=== PATIENT | female | born 1965 | race Caucasian/White ===

== ENCOUNTER 2017-04-23 21:21 | Emergency (ER) | payer SELFPAY ==
[2017-04-23] MEDS ORDERED: LISINOPRIL 10 MG TABLET PO ONE (22:39)
[2017-04-23] MEDS ORDERED: HYDROCHLOROTHIAZIDE 12.5 MG CAPSULE PO ONE (22:39)
--- NOTE | 2017-04-23 22:48 | ER Document Report ---
ED General - General Chief Complaint: Swollen area on back Stated Complaint: POSSIBLE ABSCESS ON BACK Time Seen by Provider: 04/23/17 22:33 Notes: Patient is a 51-year-old female who presents with complaint of a sore area on her back. She says over 20 years ago she had a epidural. She said since she says a small knot over her back. She says the last 2 weeks but not has grown in size and become painful. The knot is actually over her paraspinal musculature. She still thinks this is where the epidural was performed; however , this was over 20 years ago. She has had no fevers. No vomiting. Her only other complaints that her blood pressure was high upon arrival. She has no headache or chest pain or shortness of breath. She forgot to take her blood pressure medications today. She says that she is also out of refills for her blood pressure medications and is unsure if she even has any at home. She takes lisinopril and hydrochlorothiazide. TRAVEL OUTSIDE OF THE [place] IN LAST 30 DAYS: No - Related Data Allergies/Adverse Reactions: No Known Allergies Allergy (Unverified 04/23/17 21:48) Past Medical History - Social History Smoking Status: Never Smoker Frequency of alcohol use: None Drug Abuse: None Family History: Reviewed & Not Pertinent - Past Medical History Cardiac Medical History: Reports: Hx Hypertension Renal/ Medical History: Denies: Hx Peritoneal Dialysis Past Surgical History: Reports: Hx Abdominal Surgery - Hernia repair - Immunizations Immunizations up to date: Yes Hx Diphtheria, Pertussis, Tetanus Vaccination: Yes Review of Systems - Review of Systems Notes: My Normal Review Basic REVIEW OF SYSTEMS: CONSTITUTIONAL : Denies fever, chills, or sweats. Denies recent illness. EENT: Denies eye, ear, throat, or mouth pain or symptoms. Denies nasal or sinus congestion. RESPIRATORY: Denies cough, cold, or chest congestion. Denies shortness of breath, difficulty breathing, or wheezing. GASTROINTESTINAL: Denies abdominal pain. Denies nausea, vomiting, or diarrhea. Denies constipation. MUSCULOSKELETAL: Painful knot over back. SKIN: Denies rash or skin lesions. NEUROLOGICAL: Denies altered mental status or loss of consciousness. Denies headache. Denies weakness or paralysis or loss of use of either side. Denies problems with gait or speech. Denies sensory or motor loss. ALL OTHER SYSTEMS REVIEWED AND NEGATIVE. Physical Exam - Vital signs Vitals: Temp Pulse Resp BP Pulse Ox 98.3 F 75 20 183/105 H 98 04/23/17 21:44 04/23/17 21:44 04/23/17 21:44 04/23/17 21:44 04/23/17 21:44 - Notes Notes: General Appearance: Well nourished, alert, cooperative, no acute distress, mild obvious discomfort. Vitals: reviewed, See vital signs table. Head: no swelling or tenderness to the head Eyes: PERRL, EOMI, Conjuctiva clear Mouth: No decreasd moisture Back: Patient has an approximately 2 cm firm not that appears to be in the subcutaneous tissue that is over the left lumbar paraspinal musculature. Did not is not over the spine itself. There is no fluctuance. It is irregular shaped. Extremities: strength 5/5 in all extremities Skin: warm, dry, appropriate color, no rash Neuro: speech clear, oriented x 3, normal affect, responds appropriately to questions. Normal gait. Course - Re-evaluation Re-evalutation: 04/23/17 23:22 The knot is somewhat irregular shaped. It is firm. I did try to needle aspirate to see if there is any associated purulence with it. There is none. I do not consider this to be a simple lipoma being that it is irregular shaped firm and not mobile beneath the skin. Informed patient that she most likely to have a biopsy of the area. I will refer her to surgery clinic. I told her that I do not necessarily think it is cancer but we cannot rule out potential of cancer without the biopsy. She is understanding of this and agrees to follow -up with surgery clinic. I will place her back on her blood pressure medication. I encouraged her to take her medications as prescribed. Encouraged to return to ER if she has any further concerns. Patient agrees with plan and will be discharged home. Dictation of this chart was performed using voice recognition software; therefore, there may be some unintended grammatical errors. - Vital Signs Vital signs: Temp Pulse Resp BP Pulse Ox 98.3 F 75 20 183/105 H 98 04/23/17 21:44 04/23/17 21:44 04/23/17 21:44 04/23/17 21:44 04/23/17 21:44 Discharge - Discharge Clinical Impression: Soft tissue mass Hypertension Qualifiers: Hypertension type: essential hypertension Qualified Code(s): I10 - Essential ( primary) hypertension Condition: Good Disposition: HOME, SELF-CARE Additional Instructions: Please follow up with the surgery clinic (Dr. Barker) to have the bump on your back biopsied. This is important as we do not know exactly what it is so a biopsy will give us a diagnosis. Please take the high blood pressure as prescribed. please return to the ER immediately if you have severe headaches, vomiting, fevers, chest pain, or feel unwell. Prescriptions: Hydrochlorothiazide 12.5 mg PO DAILY #30 capsule Lisinopril 20 mg PO DAILY #30 tablet Naproxen [Naprosyn 250 mg Tablet] 250 mg PO BID #20 tablet Referrals: PING BARKER MD [ACTIVE STAFF] - Follow up in 3-5 days
[2017-04-23] MEDS ORDERED: NAPROXEN 250 MG TABLET PO ONE (22:52)
[2017-04-24] VITALS: BP 195/103
== END 2017-04-23 23:58 | disposition home or self-care (01) ==
LOC: ER 21:21
DX: R22.2 Localized swelling, mass and lump, trunk (principal); Z98.890 Other specified postprocedural states; I10 Essential (primary) hypertension; T46.4X6A Underdosing of angiotensin-converting-enzyme inhibitors, initial encounter; T50.2X6A Underdosing of carbonic-anhydrase inhibitors, benzothiadiazides and other diuretics, initial encounter; Z91.138 Patient's unintentional underdosing of medication regimen for other reason; Z91.14 Patient's other noncompliance with medication regimen; Z79.899 Other long term (current) drug therapy
CPT/HCPCS: 99282

== ENCOUNTER 2017-12-17 21:04 | Emergency (ER) | payer SELFPAY ==
[2017-12-17] MEDS ORDERED: ASPIRIN 81 MG TABLET, CHEWABLE PO ONE (21:23)
--- NOTE | 2017-12-17 22:06 | RADIOLOGY REPORT (SQ) ---
EXAM DESCRIPTION: CHEST SINGLE VIEW COMPLETED DATE/TIME: 12/17/2017 9:52 pm REASON FOR STUDY: chest pain COMPARISON: None. EXAM PARAMETERS: NUMBER OF VIEWS: One view. TECHNIQUE: Single frontal radiographic view of the chest acquired. RADIATION DOSE: NA LIMITATIONS: None. FINDINGS: LUNGS AND PLEURA: No opacities, masses or pneumothorax. No pleural effusion. MEDIASTINUM AND HILAR STRUCTURES: No masses. Contour normal. HEART AND VASCULAR STRUCTURES: Heart normal in size. Normal vasculature. BONES: No acute findings. HARDWARE: None in the chest. OTHER: No other significant finding. IMPRESSION: NO ACUTE RADIOGRAPHIC FINDING IN THE CHEST. TECHNICAL DOCUMENTATION: JOB ID: [id number] [employer]- All Rights Reserved Reading location - IP/workstation name: [email or web address]
[2017-12-17 22:12] VITALS: BP 170/109
[2017-12-17] MEDS ORDERED: POLYMYXIN B SULFATE/TMP OPH SOLN (10 ML/ER DISP) OS PRN (22:25)
[2017-12-17] MEDS ORDERED: LOSARTAN POTASSIUM 25 MG TABLET PO ONE (22:25)
[2017-12-17] MEDS ORDERED: HYDROCHLOROTHIAZIDE 12.5 MG CAPSULE PO ONE (22:25)
--- NOTE | 2017-12-17 23:10 | ER Document Report ---
ED General - General Chief Complaint: High Blood Pressure Stated Complaint: CHEST PAIN,HIGH BLOOD PRESSURE Time Seen by Provider: 12/17/17 22:15 TRAVEL OUTSIDE OF THE [place] IN LAST 30 DAYS: No - HPI Patient complains to provider of: Chest pain elevated blood pressure cough left eye complaint Notes: Patient coming in for cough ongoing for 5 days chest pain ongoing for 2 days elevated blood pressure and woke up this morning with left eye redness and a little bit of clear drainage. Patient states she is on antihypertensive medications however is been currently out for 1 week. Patient states pain left chest sharp shooting ongoing for the last 2 days. Denies any fevers chills nausea vomiting diarrhea. Denies any exacerbation of her chest pain except for with coughing. Denies any recent travel no hormone replacement. Patient has history of PE. Patient states originally was coming to the ER for her left eye and then noticed that her blood pressure was elevated. Patient does state that Family member has been sick for cough cold prior to her having a cough. Patient states she also has been taking pujb-uei-gjiitdl cough medication - Related Data Allergies/Adverse Reactions: No Known Allergies Allergy (Unverified 04/23/17 21:48) Past Medical History - Social History Smoking Status: Unknown if Ever Smoked Family History: Reviewed & Not Pertinent - Past Medical History Cardiac Medical History: Reports: Hx Hypertension Renal/ Medical History: Denies: Hx Peritoneal Dialysis Past Surgical History: Reports: Hx Abdominal Surgery - Hernia repair - Immunizations Immunizations up to date: Yes Hx Diphtheria, Pertussis, Tetanus Vaccination: Yes Review of Systems - Review of Systems Constitutional: See HPI, Other - Chest pain elevated blood pressure left eye pain EENT: No symptoms reported Cardiovascular: No symptoms reported Respiratory: No symptoms reported Gastrointestinal: No symptoms reported Genitourinary: No symptoms reported Female Genitourinary: No symptoms reported Musculoskeletal: No symptoms reported Skin: No symptoms reported Hematologic/Lymphatic: No symptoms reported Neurological/Psychological: No symptoms reported Physical Exam - Vital signs Vitals: Temp Pulse Resp BP Pulse Ox 99.6 F 109 H 20 193/120 H 95 12/17/17 21:40 12/17/17 21:40 12/17/17 21:40 12/17/17 21:40 12/17/17 21:40 Interpretation: Hypertensive - General General appearance: Appears well, Alert - HEENT Head: Normocephalic, Atraumatic Eyes: Normal Conjunctiva: Injected - Very mild injection of the left conjunctival Extraocular movements intact: Yes Eyelashes: Normal Pupils: PERRL - Respiratory Respiratory status: No respiratory distress Chest status: Tender - Tenderness palpation left-sided of the patient's chest reproduces the patient's pain Breath sounds: Normal Chest palpation: Normal - Cardiovascular Rhythm: Regular Heart sounds: Normal auscultation Murmur: No - Abdominal Inspection: Normal Distension: No distension Bowel sounds: Normal Tenderness: Nontender Organomegaly: No organomegaly - Back Back: Normal, Nontender - Extremities General upper extremity: Normal inspection, Nontender, Normal color, Normal ROM , Normal temperature General lower extremity: Normal inspection, Nontender, Normal color, Normal ROM , Normal temperature, Normal weight bearing. No: Meet's sign - Neurological Neuro grossly intact: Yes Cognition: Normal Orientation: AAOx4 Sheree Coma Scale Eye Opening: Spontaneous Sheree Coma Scale Verbal: Oriented Sheree Coma Scale Motor: Obeys Commands Sheree Coma Scale Total: 15 Speech: Normal Motor strength normal: LUE, RUE, LLE, RLE Sensory: Normal - Psychological Associated symptoms: Normal affect, Normal mood - Skin Skin Temperature: Warm Skin Moisture: Dry Skin Color: Normal Course - Re-evaluation Re-evalutation: 12/17/17 23:16 Patient coming in for left-sided chest pain ongoing for 2 days elevated blood pressure without taking her blood pressure medication for approximately 1 week also take an ched-lqq-lwbkxyw cough medication for cough ongoing for the last 5 days no fevers or chills also concerned about redness of the left eye with minimal drainage. Patient was seen 16 hallway and evaluated first patient on my shift. Patient would be no obvious distress. Examination only revealed mild erythema of the left eye consistent with a very mild conjunctivitis. EKG was reviewed showing no changes from previous. Patient states she is currently on hydrochlorothiazide unknown dose and losartan 25 mg. Explained to patient that we will give her home medications To the patient also that we wanted to obtain lab work to further evaluate her chest pain patient is declining laboratory studies at this time. Patient asked multiple times along with take me to order her her medications I explained to patient that as soon as I sit down at a computer we will order these medications and the nurse will administer them. I did walk into room #16 as I had the patient's chart to see next however she was in the CT scanner and then sat down on my desk order for medications later I was informed by the nursing staff that the patient had removed herself from [address] [place], [place] [id number] and was now in the [facility] patient did return back into the ER agitated apparently calling the nursing staff racist having to be escorted out by security. Patient removed herself from the ER refusing care. At this time do not see any critical etiology on EKG or on her physical examination. At the good patient discharge instructions with the provide the patient a bottle Polytrim for her very minimal left conjunctivitis. We also did provide prescriptions as the patient does have hypertension has been out of her medications for 1 week for a week supply worth of losartan and hydrochlorothiazide 12.5 mg low dose is that we have prescribed this in the past. Is currently standing in the [facility] patient has refused all lab draws of the ER. 12/18/17 02:56 - Vital Signs Vital signs: Temp Pulse Resp BP Pulse Ox 98 F 104 H 22 H 170/109 H 98 12/17/17 22:10 12/17/17 22:10 12/17/17 22:10 12/17/17 22:10 12/17/17 22:10 Discharge - Discharge Clinical Impression: Cough, Chest pain of uncertain etiology Conjunctivitis Qualifiers: Conjunctivitis type: unspecified Laterality: left Qualified Code(s): H10.9 - Unspecified conjunctivitis Hypertension Qualifiers: Hypertension type: essential hypertension Qualified Code(s): I10 - Essential ( primary) hypertension Disposition: HOME, SELF-CARE Instructions: Chest Wall Pain ([facility]), Conjunctivitis ([facility]), Chest Pain of Unclear Cause ([facility]), High Blood Pressure ([facility]) Additional Instructions: Your chest x-ray today does not show any signs of infection or pneumonia. Her lung sounds on examination are clear. More likely your cough is due to underlying viral illness. With viral illnesses he can expect a cough for approximately 1-2 weeks. Recommend following up with your primary care physician for further evaluation. Her left eye is mildly erythematous consistent with a conjunctivitis which may be viral allergic or bacterial in origin. Please use the antibiotic drops to be gave you here in the ER 1-2 drops in her left eye 4 times a day for the next 7 days. Your EKG today does not show any acute abnormality. No signs of cardiac ischemia. You have refused any lab draws this time to further evaluate your chest pain. You stated that you have been out of your blood pressure medications for the last week did not take any blood pressure medication today. You also state of you have been taking ygjg-nbg-fwkgrbz cough cold medications. Please be aware that without taking a blood pressure medications and certain cough cold medications will cause your pressure to elevate blood pressure to elevate. He stated you are currently on losartan 25 mg and hydrochlorothiazide unknown dose. We gave you losartan 25 mg and hydrochlorothiazide low dose of 12.5 for your elevated blood pressure. I will give you a prescription for losartan 25 mg to take daily and hydrochlorothiazide 12.5 mg to take daily for the next 7 days. Please make sure you follow-up with your primary care physician for refills. Please let your local pharmacy as noted you are on blood pressure medications that can guide you in the appropriate wida-auy-qtmqnyk medications to take for your cough and cold-like symptoms. Return to ER anytime for further evaluation. Prescriptions: Hydrochlorothiazide 12.5 mg PO DAILY #7 capsule Losartan Potassium 25 mg PO DAILY #7 tablet Forms: Return to Work
--- NOTE | 2017-12-18 08:01 | EKG REPORT ---
SEVERITY:- ABNORMAL ECG - SINUS RHYTHM PROBABLE LVH WITH SECONDARY REPOL ABNRM : Confirmed by: Rudolph Yeh MD 18-Dec-2017 08:01:04
== END 2017-12-17 23:27 | disposition home or self-care (01) ==
LOC: ER 21:04
DX: I10 Essential (primary) hypertension (principal); T46.5X6A Underdosing of other antihypertensive drugs, initial encounter; T50.2X6A Underdosing of carbonic-anhydrase inhibitors, benzothiadiazides and other diuretics, initial encounter; Z91.128 Patient's intentional underdosing of medication regimen for other reason; Z91.14 Patient's other noncompliance with medication regimen; H10.9 Unspecified conjunctivitis; R07.9 Chest pain, unspecified; R05 Cough; H57.12 Ocular pain, left eye; Z86.711 Personal history of pulmonary embolism; Z53.29 Procedure and treatment not carried out because of patient's decision for other reasons
CPT/HCPCS: 93005; 99283; 71045; 93010; J3490

== ENCOUNTER 2018-08-03 12:49 | Emergency (ER) | payer SELFPAY ==
[2018-08-03] MEDS ORDERED: CLONIDINE HCL 0.2 MG TABLET PO ONE (13:06)
--- NOTE | 2018-08-03 13:08 | ER Document Report ---
ED Medical Screen (RME) - General Chief Complaint: Abdominal Pain Stated Complaint: ABDOMEN PAIN Time Seen by Provider: 08/03/18 13:05 Mode of Arrival: Ambulatory Information source: Patient - pt with severe pelvic pain and discharge with some hematuria for the past several hours. Also, BP elevated. Didd not take meds today. TRAVEL OUTSIDE OF THE [place] IN LAST 30 DAYS: No - Related Data Allergies/Adverse Reactions: No Known Allergies Allergy (Verified 08/03/18 12:51) Past Medical History - Past Medical History Cardiac Medical History: Reports: Hx Hypertension Renal/ Medical History: Denies: Hx Peritoneal Dialysis Past Surgical History: Reports: Hx Abdominal Surgery - Hernia repair - Immunizations Immunizations up to date: Yes Hx Diphtheria, Pertussis, Tetanus Vaccination: Yes Physical Exam - Vital signs Vitals: Temp Pulse Resp BP Pulse Ox 97.9 F 78 16 222/102 H 97 08/03/18 12:53 08/03/18 12:53 08/03/18 12:53 08/03/18 12:53 08/03/18 12:53 Course - Vital Signs Vital signs: Temp Pulse Resp BP Pulse Ox 97.9 F 78 16 222/102 H 97 08/03/18 12:53 08/03/18 12:53 08/03/18 12:53 08/03/18 12:53 08/03/18 12:53
[2018-08-03 13:45] LABS: ABSOLUTE EOSINOPHILS # (AUTO) 0.1 10^3/uL (0.0-0.6); ABSOLUTE LYMPHOCYTES (AUTO) 2.7 10^3/uL (0.5-4.7); ABSOLUTE MONOCYTES (AUTO) 0.6 10^3/uL (0.1-1.4); BASOPHILS % (AUTO) 0.2 % (0-2); EOSINOPHILS % (AUTO) 1.5 % (0-6); HEMATOCRIT 37.8 % (36.0-47.0); HEMOGLOBIN 12.2 g/dL (12.0-15.5); LYMPHOCYTES % (AUTO) 42.3 % (13-45); MEAN CORPUSCULAR HEMOGLOBIN 25.5 pg (27.0-33.4); MEAN CORPUSCULAR HGB CONC 32.2 g/dL (32.0-36.0); MEAN CORPUSCULAR VOLUME 79 fl (80-97); MONOCYTES % (AUTO) 9.2 % (3-13); PLATELET COUNT 298 10^3/uL (150-450); RED BLOOD COUNT 4.78 10^6/uL (3.72-5.28); SEGMENTED NEUTROPHILS % (AUTO) 46.8 % (42-78); TOTAL CELLS COUNTED % (AUTO) 100 %; WHITE BLOOD COUNT 6.4 10^3/uL (4.0-10.5)
[2018-08-03 14:01] LABS: ALANINE AMINOTRANSFERASE 22 U/L (9-52); ALBUMIN 4.7 g/dL (3.5-5.0); ALKALINE PHOSPHATASE 98 U/L (38-126); ANION GAP 15 (5-19); ASPARTATE AMINO TRANSFERASE 23 U/L (14-36); BILIRUBIN,DIRECT 0.3 mg/dL (0.0-0.4); BILIRUBIN,TOTAL 0.5 mg/dL (0.2-1.3); BLOOD UREA NITROGEN 15 mg/dL (7-20); CALCIUM 9.6 mg/dL (8.4-10.2); CARBON DIOXIDE 23 mmol/L (22-30); CHLORIDE 106 mmol/L (98-107); GLUCOSE 88 mg/dL (75-110); POTASSIUM 3.8 mmol/L (3.6-5.0); SODIUM 143.8 mmol/L (137-145); TOTAL PROTEIN 8.6 g/dL (6.3-8.2)
[2018-08-03 14:41] LABS: APPEARANCE,URINE CLOUDY; BILIRUBIN,URINE NEGATIVE (NEGATIVE); COLOR,URINE ORANGE; GLUCOSE, URINE NEGATIVE (NEGATIVE); KETONES,URINE NEGATIVE (NEGATIVE); LEUKOCYTE ESTERASE,URINE NEGATIVE (NEGATIVE); NITRITE,URINE NEGATIVE (NEGATIVE); PROTEIN,URINE 100 mg/dL (NEGATIVE); URINE SPECIFIC GRAVITY 1.023
[2018-08-03 15:45] LABS: BACTERIA (WET MOUNT) 3+ BACTERIA SEEN; RBCS (WET MOUNT) 4+ RBCS SEEN; T.VAGINALIS (WET MOUNT) NO TRICHOMONAS SEEN; WBCS (WET MOUNT) FEW WBCS SEEN; YEAST (WET MOUNT) NO YEAST SEEN
[2018-08-03 17:17] LABS: CHLAM PCR NOT DETECTED (NOT DETECT); GON PCR NOT DETECTED (NOT DETECT)
--- NOTE | 2018-08-03 18:03 | RADIOLOGY REPORT (SQ) ---
EXAM DESCRIPTION: U/S NON-OB PELVIS TV W/O DOP COMPLETED DATE/TIME: 08/03/2018 5:43 pm REASON FOR STUDY: pelvic pain COMPARISON: None. TECHNIQUE: Dynamic and static grayscale images acquired of the pelvis via transvaginal approach and recorded on PACS. Additional selected color Doppler and spectral images recorded. LIMITATIONS: None. FINDINGS: UTERUS: Contour normal. Within the anterior myometrium is a 2.0 x 1.6 cm hypoechoic intra mural fibroid with no internal color flow. ENDOMETRIAL STRIPE: No focal or generalized thickening. No masses. CERVIX: No nabothian cysts. RIGHT OVARY AND DOPPLER: Ovary not visualized. LEFT OVARY AND DOPPLER: Ovary not visualized. FREE FLUID: Trace pelvic free fluid OTHER: No other significant finding. MEASUREMENTS: UTERUS: 10.9 x 6.7 x 5.7 cm ENDOMETRIAL STRIPE: 11 mm RIGHT OVARY: Not visualized LEFT OVARY: Not visualized IMPRESSION: 1. Nonvisualization of ovaries. 2. Fibroid uterus. 3. Trace pelvic free fluid. TECHNICAL DOCUMENTATION: JOB ID: [id number] [employer]- All Rights Reserved Rev-02/07 Reading location - IP/workstation name: [email or web address]
--- NOTE | 2018-08-03 18:35 | ER Document Report ---
ED GI/ - General Chief Complaint: Abdominal Pain Stated Complaint: ABDOMEN PAIN Time Seen by Provider: 08/03/18 13:05 Mode of Arrival: Ambulatory Information source: Patient Notes: Patient is a 53-year-old female comes emergency room complaining of dysfunctional uterine bleeding. Patient tells me that yesterday she had a little bit of a white discharge vaginally but states she does not know what that is from because she is not been intimate in over a year. She states she got up and took her son to the bus this morning to go back to [place] she came home and lay down when she woke up around 9 AM she had to go to the bathroom when she did she peed bright red blood. She drinks more water and thought maybe she would flush it out and she did it one more time and so she decided to come into ER and get it checked out. She denies passing any clots at present. Patient states that she stopped her periods in 2012. Her REGULATION SUPERVISOR at the time who she has not seen in 3 years told her she was perimenopausal 3 years ago. Patient denies any other medical problems with the exception of hypertension which she is taking medication for and did not take today. The only surgery she has had his hernia surgery when she was a child. TRAVEL OUTSIDE OF THE [place] IN LAST 30 DAYS: No - HPI Patient complains to provider of: Vaginal bleeding Onset: This morning Timing/Duration: Sudden, Worse Quality of pain: Achy, Throbbing Severity at maximum: Moderate Severity in ED: Moderate Pain Level: 3 Location: Pelvis Vaginal bleeding (Compared to normal period): Bright red. denies: Passing clots , Passing tissue Menstrual period history: Abnormal, Post-menopausal LMP: 2013 Sexual history: Inactive Associated symptoms: Vaginal discharge Exacerbated by: Denies Relieved by: Denies Similar symptoms previously: No Recently seen / treated by doctor: No - Related Data Allergies/Adverse Reactions: No Known Allergies Allergy (Verified 08/03/18 12:51) Past Medical History - General Information source: Patient - Social History Smoking Status: Never Smoker Cigarette use (# per day): No Chew tobacco use (# tins/day): No Smoking Education Provided: No Frequency of alcohol use: None Drug Abuse: None Family History: Reviewed & Not Pertinent Patient has suicidal ideation: No Patient has homicidal ideation: No - Past Medical History Cardiac Medical History: Reports: Hx Hypertension Renal/ Medical History: Denies: Hx Peritoneal Dialysis Past Surgical History: Reports: Hx Abdominal Surgery - Hernia repair - Immunizations Immunizations up to date: Yes Hx Diphtheria, Pertussis, Tetanus Vaccination: Yes Review of Systems - Review of Systems Constitutional: No symptoms reported EENT: No symptoms reported Cardiovascular: No symptoms reported Respiratory: No symptoms reported Gastrointestinal: No symptoms reported Genitourinary: Hematuria Female Genitourinary: See HPI, Vaginal bleeding Musculoskeletal: No symptoms reported Skin: No symptoms reported Hematologic/Lymphatic: No symptoms reported Neurological/Psychological: No symptoms reported -: Yes All other systems reviewed and negative Physical Exam - Vital signs Vitals: Temp Pulse Resp BP Pulse Ox 97.9 F 78 16 222/102 H 97 08/03/18 12:53 08/03/18 12:53 08/03/18 12:53 08/03/18 12:53 08/03/18 12:53 Interpretation: Hypertensive - Notes Notes: PHYSICAL EXAMINATION: GENERAL: Well-appearing, well-nourished and in no acute distress. HEAD: Atraumatic, normocephalic. EYES: Pupils equal round and reactive to light, extraocular movements intact, conjunctiva are normal. ENT: Nares patent, oropharynx clear without exudates. Moist mucous membranes. NECK: Normal range of motion, supple without lymphadenopathy LUNGS: Breath sounds clear to auscultation bilaterally and equal. No wheezes rales or rhonchi. HEART: Regular rate and rhythm without murmurs ABDOMEN: Examination of patient's abdomen shows she has bowel sounds in all 4 quads. She is nontender in the quadrants of the abdominal area. She does show some moderate tenderness suprapubically to palpation. I cannot palpate the bladder at this time. Female : Pelvic exam shows that external genitalia appear normal. There is some drying blood on the introitus. And the vaginal canal has darkish blood. Further examination shows her to have a normal-appearing cervix the office is multiparity it is closed there is a minimal to moderate amount of darkish red blood coming from the office with a clear kind of discharge mucoid discharge with it. Again it is closed. There is large amount of dark red blood in the vaginal vault although there are no blood clots that I can see at this time. Bimanual exam does not show any abnormalities or tenderness. Musculoskeletal: Normal range of motion, no pitting or edema. No cyanosis. NEUROLOGICAL: Cranial nerves grossly intact. Normal speech, normal gait. Normal sensory, motor exams PSYCH: Normal mood, normal affect. SKIN: Warm, Dry, normal turgor, no rashes or lesions noted. Course - Re-evaluation Re-evalutation: 08/03/18 18:35 Currently patient's labs all normal with exception of she comes back 182 WBCs believe we will treat that as a urinary tract infection even though she does not have any nitrates or she does not have any leukocytes. We will treat for 5 days on that was to Macrobid. At this point of the ultrasound did not be everything abnormal although did not moss picker the ovaries. Given patient's discomfort is more suprapubically I really believe it to be more involving the uterus at this time however it was negative ultrasound. I am have patient home and follow-up with her REGULATION SUPERVISOR sometime this week. I have discussed with patient that she needs to stay off the Internet because everything that she is going to look at it is going to be cancerous. At this point in time there is no indication that this is a cancerous type of a lesion involved. It is just one thing I can tell her that it is something is not going to kill her tonight. And that she must relax and let the medical doctor do their thing. She needs a further evaluation by a REGULATION SUPERVISOR - Vital Signs Vital signs: Temp Pulse Resp BP Pulse Ox 97.9 F 78 16 222/102 H 97 08/03/18 12:53 08/03/18 12:53 08/03/18 12:53 08/03/18 12:53 08/03/18 12:53 - Laboratory Result Diagrams: 08/03/18 13:30 08/03/18 13:30 Laboratory results interpreted by me: 08/03/18 08/03/18 08/03/18 13:28 13:30 13:30 MCV 79 L MCH 25.5 L RDW 16.0 H Total Protein 8.6 H Urine Protein 100 H Urine Blood LARGE H Urine Urobilinogen 2.0 H Discharge - Discharge Clinical Impression: Dysfunctional uterine bleeding UTI (urinary tract infection) Qualifiers: Urinary tract infection type: acute cystitis Hematuria presence: with hematuria Qualified Code(s): N30.01 - Acute cystitis with hematuria Condition: Stable Disposition: HOME, SELF-CARE Instructions: Nitrofurantoin ([facility]), Urinary Tract Infection ([facility]), Dysfunctional Uterine Bleeding ([facility]) Additional Instructions: Home tonight and rest. As we discussed you need to follow-up with a REGULATION SUPERVISOR/ veterinary poultry inspector sometime this week. You do have bleeding that is little abnormal since you have stopped. 3 years ago. However after doing a pelvic exam it does not look to be serious. It actually looks like you may be having a menstrual cycle. Been given at that it has been a while since you have it is better to follow-up with the people to do this on a daily basis. He also have a large amount of white cells in your urine and we are going to treat you for urinary tract infection however this is not causing you to have the bleeding that you have going now. Also given that you have not been sexually active in over 6 months to a year that I am not worried about any other internal type of a rupture or he also admits to not using any type of sexual toys so not worried about any type of tear. Plus I was able to visualize the blood coming out of the cervix. Is at this time is home and pelvic rest. Contact your REGULATION SUPERVISOR in the morning and if you continue to bleed and get lightheaded nauseated diaphoretic/ sweaty return to ER for a recheck. Prescriptions: Hydrocodone/Acetaminophen [[place] 5-325 mg Tablet] 1 tab PO Q6 PRN #12 tablet PRN Reason: Nitrofurantoin Macrocrystal [Macrodantin] 100 mg PO BID #10 capsule Forms: Elevated Blood Pressure Referrals: CHAGO ARORA MD [ACTIVE STAFF] - Follow up as needed
[2018-08-03 19:20] VITALS: BP 191/122
== END 2018-08-03 19:19 | disposition home or self-care (01) ==
LOC: ER 12:49
DX: N93.8 Other specified abnormal uterine and vaginal bleeding (principal); N30.01 Acute cystitis with hematuria; N89.8 Other specified noninflammatory disorders of vagina; I10 Essential (primary) hypertension; Z79.899 Other long term (current) drug therapy
CPT/HCPCS: 36415; 76830; 80053; 81001; 85025; 87210; 87491; 87591; 99284